=== PATIENT | male | born 1985 | race Two or more races ===

== ENCOUNTER 2017-10-25 23:19 | Emergency (ER) | payer BC ==
[~2017-10-25] VITALS: Ht 175.3 cm; Wt 206.8 kg
[2017-10-25 23:35] VITALS: BP 105/81
[2017-10-25] MEDS ORDERED: NS 55ml IV ONE (23:47)
[2017-10-26] MEDS ORDERED: HYDROmorphone 1mg/ml Carpuject IM ONE
[2017-10-26 00:03] VITALS: BP 107/79
[2017-10-26 00:28] LABS: BASOPHILS % (AUTO) 0.6 % (0.0-2.0); EOSINOPHILS % (AUTO) 1.7 % (0.0-3.0); HEMATOCRIT 42.2 % (42.0-52.0); HEMOGLOBIN 13.5 G/DL (14.2-18.0); MEAN CORPUSCULAR VOLUME 77 FL (80-99); MONOCYTES % (AUTO) 5.9 % (1.0-10.0); NEUTROPHILS % (AUTO) 67.8 % (45.0-75.0); PLATELET COUNT 337 K/UL (150-450); RED BLOOD COUNT 5.45 M/UL (4.70-6.10); RED CELL DISTRIBUTION WIDTH 14.7 % (11.6-14.8); WHITE BLOOD COUNT 9.4 K/UL (4.8-10.8)
[2017-10-26] MEDS ORDERED: Ketorolac 30mg Inj IV ONE ×2 (00:30)
[2017-10-26] MEDS ORDERED: HYDROmorphone 1mg/ml Carpuject IVP ONE ×3 (00:30→01:15)
[2017-10-26 00:31] LABS: BILIRUBIN, URINE NEGATIVE (NEGATIVE); COLOR,URINE RED; GLUCOSE, URINE (UA) NEGATIVE (NEGATIVE); KETONES,URINE 1+ (NEGATIVE); LEUKOCYTE ESTERASE ,URINE 1+ (NEGATIVE); NITRITE,URINE NEGATIVE (NEGATIVE); PH,URINE 5 (4.5-8.0); PROTEIN,URINE 4+ (NEGATIVE); UROBILINOGEN,URINE NORMAL MG/DL (0.0-1.0)
[2017-10-26 00:37] LABS: ANION GAP 10 mmol/L (5-15); BLOOD UREA NITROGEN 14 mg/dL (7-18); CARBON DIOXIDE 25 MMOL/L (21-32); CHLORIDE 105 MMOL/L (98-107); CREATININE 1.1 MG/DL (0.55-1.30); POTASSIUM 3.6 MMOL/L (3.5-5.1); SODIUM 140 MMOL/L (136-145)
[2017-10-26 00:54] LABS: APPEARANCE,URINE SLIGHTLY CLOUDY
[2017-10-26] MEDS ORDERED: cefTRIAXone 1 GM in NS 55 ML IVPB ONE (01:00)
[2017-10-26] MEDS ORDERED: TAMSULOSIN HCL0.4 MG ORAL (01:38)
[2017-10-26] MEDS ORDERED: LEVAQUIN500 MG ORAL (01:38)
[2017-10-26] MEDS ORDERED: HYDROCODON-ACE1 EA15 ORAL (01:38)
--- NOTE | 2017-10-26 01:38 | Emergency Room Report ---
History of Present Illness General Chief Complaint: Abdominal Pain Source: Patient Present Illness HPI Is a 32-year-old male with history of cholecystectomy in the past. He present with chief complaint of right flank pain with hematuria. Flow week he's been having urinary frequency and urgency and dysuria. His referred him to see a urologist. He had a CAT scan that showed 5 mm stone in the kidney itself. No urine or blood was done. He was traveling from [place] to here. He developed acute onset of right flank pain radiating to the groin area. Has hematuria. Pain is 10 out of 10. Nausea but no vomiting. Allergies: Coded Allergies: METOCLOPRAMIDE (Verified Allergy, Unknown, 10/25/17) PENICILLINS (Verified Allergy, Unknown, 10/25/17) PROMETHAZINE (Verified Allergy, Unknown, 10/25/17) Patient History Past Medical History: see triage record, old chart reviewed Past Surgical History: anthony Pertinent Family History: none Social History: Denies: smoking Immunizations: other Reviewed Nursing Documentation: PMH: Agreed, PSxH: Agreed Review of Systems Eye: Denies: eye pain, blurred vision ENT: Denies: ear pain, nose congestion, throat swelling Respiratory: Denies: cough, shortness of breath Cardiovascular: Denies: chest pain, palpitations Gastrointestinal: Reports: abdominal pain, nausea, Denies: diarrhea, vomiting Genitourinary: Reports: dysuria, frequency, hematuria Musculoskeletal: Reports: back pain, Denies: joint pain Skin: Denies: rash Neurological: Denies: headache, numbness Endocrine: Denies: increased thirst, increased urine Hematologic/Lymphatic: Denies: easy bruising All Other Systems: negative except mentioned in HPI Physical Exam Vital Signs Date Time Temp Pulse Resp B/P (MAP) Pulse Ox O2 Delivery O2 Flow Rate FiO2 10/25/17 23:22 97.9 102 20 99 Room Air 10/25/17 23:35 105/81 vitals normal Sp02 EP Interpretation: reviewed, normal General Appearance: well appearing, no apparent distress, alert, obese Head: normocephalic, atraumatic Eyes: bilateral eye PERRL, bilateral eye EOMI ENT: hearing grossly normal, normal pharynx Neck: full range of motion, supple, no meningismus Respiratory: chest non-tender, lungs clear, normal breath sounds Cardiovascular #1: regular rate, rhythm, no murmur Gastrointestinal: normal bowel sounds, non tender, no mass, no organomegaly, no bruit, non-distended Musculoskeletal: back normal, gait/station normal, normal range of motion Neurologic: alert, oriented x3 Psychiatric: mood/affect normal Skin: warm/dry Medical Decision Making Diagnostic Impression: Primary Impression: UTI (urinary tract infection) Qualified Codes: N30.01 - Acute cystitis with hematuria Additional Impressions: Renal colic on right side Morbid obesity with BMI of 60.0-69.9, adult Proteinuria Qualified Codes: R80.9 - Proteinuria, unspecified ER Course Patient with right flank pain. Pain is well-controlled now. Urinalysis showed infection. I suspect he had urinary tract infection for about a week now. This may become pyelonephritis. He has an incidental finding of a 5 mm kidney stone. Per patient's was inside the kidney itself. His urologist told him that he should have any issue traveling. The kidney stone may have become a ureteral stone. Unfortunately he is to obese for hour CT scan. Antibiotics given. Pain medication given. He felt better now. We'll discharge home. Lab Results Impression labs unremarkable CT/MRI/US Diagnostic Results CT/MRI/US Diagnostic Results : Imaging Test Ordered: CT abdomen and pelvis Impression unable to do because of his weight Last Vital Signs Date Time Temp Pulse Resp B/P (MAP) Pulse Ox O2 Delivery O2 Flow Rate FiO2 10/25/17 23:35 98.1 84 19 105/81 98 Room Air Status: improved Disposition: HOME, SELF-CARE Condition: Stable Scripts Hydrocodone/Acetaminophen 5-325* (HYDROCODONE/ACETAMINOPHEN 5-325*) 1 Each Tablet 1 TAB ORAL Q6H Y for For Pain, #30 TAB 0 Refills Prov: YOHANNES CONNOR M.D. 10/26/17 Tamsulosin Hcl (TAMSULOSIN HCL*) 0.4 Mg Cap.er.24h 0.4 MG ORAL BEDTIME, #14 CAP Prov: YOHANNES CONNOR M.D. 10/26/17 Levofloxacin* (LEVAQUIN*) 500 Mg Tablet 500 MG ORAL DAILY, #7 TAB Prov: YOHANNES CONNOR M.D. 10/26/17 Additional Instructions: Followup with urologist in 2-5 days. Return if symptom worsen. Return for fever. YOHANNES CONNOR M.D. Oct 26, 2017 01:38
[2017-10-26 01:50] VITALS: BP 110/79
[2017-10-26 01:57] VITALS: BP 110/79
== END 2017-10-26 01:57 | disposition home or self-care (01) ==
LOC: EMR 23:46
DX: N39.0 Urinary tract infection, site not specified (principal); R31.9 Hematuria, unspecified; E66.01 Morbid (severe) obesity due to excess calories; Z68.44 Body mass index [BMI] 60.0-69.9, adult; N23 Unspecified renal colic; R80.9 Proteinuria, unspecified; Z88.0 Allergy status to penicillin; Z90.49 Acquired absence of other specified parts of digestive tract; Z88.8 Allergy status to other drugs, medicaments and biological substances
CPT/HCPCS: 36415; 80048; 81003; 85025; 87086; 96361; 96365; 96372; 96375; 96376; 99284; J0696; J1170; J1885; J2405